=== PATIENT | male | born 1990 | race Two or more races ===

== ENCOUNTER 2020-06-10 18:29 | Emergency (ER) | payer SELFPAY ==
--- NOTE | 2020-06-10 19:49 | CR ---
[id number] RAD/RAD Ankle Left 3V Min EXAM: RAD Ankle Left 3V Min CLINICAL DATA: TRAUMA COMPARISON: NO PREVIOUS SIMILAR EXAM IS AVAILABLE. FINDINGS: No fracture or dislocation is seen. There is no radiopaque foreign body in the soft tissues. There is no air in the soft tissues. There is no cortical thickening or periosteal reaction either. IMPRESSION: NEGATIVE PLAIN FILM EXAM. Austin Quiles MD 06/10/20 [id number] Thank you for allowing us to participate in the care of your patient.
--- NOTE | 2020-06-10 22:12 | EDM.PDOC ---
ED HPI GENERAL MEDICAL PROBLEM - General Chief Complaint: Lower Extremity Injury/Pain Stated Complaint: TWISTED ANKLE AT WORK Time Seen by Provider: 06/10/20 18:50 Source of Information: Reports: Patient History Limitations: Reports: No Limitations - History of Present Illness INITIAL COMMENTS - FREE TEXT/NARRATIVE: Pt. presents to ER with complaints of L ankle pain. Pt. states that he misstepped coming down some stairs and somehow twisted his ankle. He heard a snap and complaints of lateral ankle pain. Denies any numbness/tingling in extremity. Denies previous injury to the joint. He states that this happened at work. He states that the discomfort/injury is isolated to his L ankle on the lateral aspect. Onset: Today Onset Date: 06/10/20 Location: Reports: Lower Extremity, Left Left Ankle Pain Score (Numeric/FACES): 7 - Related Data Allergies Allergy/AdvReac Type Severity Reaction Status Date / Time No Known Allergies Allergy Verified 06/10/20 18:43 Home Meds: Home Meds . [No Known Home Meds] 06/10/20 [History] Past Medical History - Past Health History Medical/Surgical History: Denies Medical/Surgical History Social & Family History - Tobacco Use Smoking Status *Q: Current Every Day Smoker Years of Tobacco use: 10 Packs/Tins Daily: 0.5 - Alcohol Use Days Per Week of Alcohol Use: 1 Number of Drinks Per Day: 1 Total Drinks Per Week: 1 - Recreational Drug Use Recreational Drug Use: No Review of Systems - Review of Systems Review Of Systems: Comprehensive ROS is negative, except as noted in HPI. ED EXAM, GENERAL - Physical Exam Exam: See Below Exam Limited By: No Limitations Extremities: Joint Swelling, Leg Pain (L lateral ankle pain/edema. Drawer test negative. CMS intact. No deformity. No crepitus noted.) Course - Vital Signs Last Recorded V/S: Last Vital Signs Temp 37.3 C 06/10/20 18:50 Pulse 99 06/10/20 18:50 Resp 18 06/10/20 18:50 BP 146/92 H 06/10/20 18:50 Pulse Ox 98 06/10/20 18:50 - Radiology Interpretation Free Text/Narrative:: radiographs of L ankle obtained and were negative. Departure - Departure Time of Disposition: 20:00 Disposition: Home, Self-Care 01 Clinical Impression: Left ankle sprain - Discharge Information Instructions: Ankle Sprain, [id number] Referrals: PCP,None [Primary Care Provider] - Forms: ED Department Discharge Additional Instructions: Keep splint on as needed. If starting to really feel better, you can remove it. Off work this weekend. Elevate foot and ankle, especially tonight. Recheck in clinic in 7-10 days if not gradually improving. Sepsis Event Note (ED) - Evaluation Sepsis Screening Result: No Definite Risk - Focused Exam Vital Signs: Vital Signs Temp Pulse Resp BP Pulse Ox 06/10/20 18:50 37.3 C 99 18 146/92 H 98 - Problem List Review Problem List Initiated/Reviewed/Updated: Yes - Assessment/Plan Plan: Keep splint on as needed. If starting to really feel better, you can remove it. Off work this weekend. Elevate foot and ankle, especially tonight. Recheck in clinic in 7-10 days if not gradually improving.
== END 2020-06-10 20:10 | disposition home or self-care (01) ==
LOC: VM.ED 18:29
DX: S93.402A Sprain of unspecified ligament of left ankle, initial encounter (principal); F17.210 Nicotine dependence, cigarettes, uncomplicated; X50.1XXA Overexertion from prolonged static or awkward postures, initial encounter; Y92.89 Other specified places as the place of occurrence of the external cause; Y99.0 Civilian activity done for income or pay
CPT/HCPCS: 73610-LT; 99283